=== PATIENT | female | born 1995 | race African-American/Black ===

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

== ENCOUNTER 2019-01-25 08:58 | Emergency (ER) | payer SELFPAY ==
[~2019-01-25] VITALS: Ht 157.5 cm; Wt 50.0 kg
[2019-01-25] MEDS ORDERED: ACETAMINOPHEN 325MG TABLET PO PRN (09:30)
[2019-01-25 09:54] LABS: CHLORIDE 105 mEq/L (98-107)
[2019-01-25 09:56] LABS: BASOPHILS % 0.6 % (0.0-2.0); EOSINOPHILS % 0.2 % (0.0-5.0); HEMATOCRIT. 34.3 % (36.0-48.0); HEMOGLOBIN. 11.5 g/dL (12.0-16.0); LYMPHOCYTES % 9.4 % (20.0-50.0); MEAN CORPUSCULAR HEMOGLOBIN 32.6 pg (28.0-32.0); MEAN CORPUSCULAR VOLUME 97.5 fL (81.0-99.0); MEAN PLATELET VOLUME 7.5 fl (7.4-10.4); MONOCYTES % 5.4 % (2.0-8.0); NEUTROPHILS % 84.4 % (40.0-76.0); PLATELET 229 x1000/uL (130-400); RED BLOOD CELL COUNT 3.52 mill/uL (4.2-5.4); RED CELL DISTRIBUTION WIDTH 13.6 % (11.6-14.6)
[2019-01-25 10:17] LABS: B-HCG QUANTITATIVE 1213 mIU/mL (<3)
[2019-01-25 12:08] VITALS: BP 116/70
== END 2019-01-25 12:10 | disposition home or self-care (01) ==
LOC: ER 09:09
DX: O20.0 Threatened abortion (principal); Z3A.09 9 weeks gestation of pregnancy
CPT/HCPCS: 36415; 76801; 84702; 86850; 86900; 99284

== ENCOUNTER 2020-09-23 12:39 | Emergency (ER) | payer SELFPAY ==
[~2020-09-23] VITALS: Ht 157.5 cm; Wt 52.0 kg
[2020-09-23 12:46] VITALS: BP 110/82
[2020-09-23] MEDS ORDERED: ACETAMINOPHEN 325MG TABLET PO ONE (14:45)
[2020-09-23] MEDS ORDERED: AMOX-494 MT (14:53)
[2020-09-23] MEDS ORDERED: ACET650T37 MT (14:53)
== END 2020-09-23 15:02 | disposition home or self-care (01) ==
LOC: ER 12:39
DX: K08.89 Other specified disorders of teeth and supporting structures (principal); K04.7 Periapical abscess without sinus; F12.10 Cannabis abuse, uncomplicated
CPT/HCPCS: 99283

== ENCOUNTER 2021-07-15 10:15 | Emergency (ER) | payer SELFPAY ==
[~2021-07-15] VITALS: Ht 157.5 cm; Wt 55.0 kg
[~2021-07-15 10:15] MED LIST: ACET650T37 MT; AMOX-494 MT
[2021-07-15 10:57] VITALS: BP 106/73
[2021-07-15] MEDS ORDERED: DICYCLOMINE 10 MG/5 ML ORAL SYR PO STA (11:14)
[2021-07-15] MEDS ORDERED: VISCOUS LIDOCAINE 2% 15 ML UDC PO STA (11:14)
[2021-07-15] MEDS ORDERED: MAGNESIUM/ALUMINUM HYDROXIDE/SIMETHICONE 30ML UDC PO STA (11:14)
[2021-07-15] MEDS ORDERED: XLV MT (12:16)
[2021-07-15] MEDS ORDERED: MAG-55 MT (12:16)
== END 2021-07-15 12:41 | disposition home or self-care (01) ==
LOC: ER 10:15
DX: O26.892 Other specified pregnancy related conditions, second trimester (principal); Z3A.23 23 weeks gestation of pregnancy; F12.10 Cannabis abuse, uncomplicated; Z98.890 Other specified postprocedural states
CPT/HCPCS: 76805; 99284

== ENCOUNTER 2021-07-30 09:09 | Emergency (ER) | payer MEDICAID ==
[~2021-07-30] VITALS: Ht 157.5 cm; Wt 59.0 kg
[~2021-07-30 09:09] MED LIST changes: +ACET-3163 MT; -ACET650T37 MT; +MAG-55 MT; +XLV MT
[2021-07-30] MEDS ORDERED: SODIUM CHLORIDE 0.9% 1,000 ML IV ONE (11:30)
[2021-07-30 11:39] LABS: BASOPHILS % 0.1 % (0.0-2.0); EOSINOPHILS % 0.1 % (0.0-5.0); HEMATOCRIT. 27.9 % (36.0-48.0); HEMOGLOBIN. 9.4 g/dL (12.0-16.0); LYMPHOCYTES % 10.7 % (20.0-50.0); MEAN CORPUSCULAR HEMOGLOBIN 31.7 pg (28.0-32.0); MEAN CORPUSCULAR VOLUME 94.1 fL (81.0-99.0); MEAN PLATELET VOLUME 8.2 fl (7.4-10.4); MONOCYTES % 7.9 % (2.0-8.0); NEUTROPHILS % 81.2 % (40.0-76.0); PLATELET 203 x1000/uL (130-400); RED BLOOD CELL COUNT 2.96 mill/uL (4.2-5.4); RED CELL DISTRIBUTION WIDTH 14.1 % (11.6-14.6)
[2021-07-30 11:44] LABS: CHLORIDE 106 mEq/L (98-107)
[2021-07-30 11:47] LABS: PROTHROMBIN TIME 10.8 sec (9.6-11.0)
[2021-07-30] MEDS ORDERED: ONDANSETRON HCL 4MG/2ML INJ IV STA (12:19)
[2021-07-30] MEDS ORDERED: MORPHINE SULFATE 4 MG/ML CPJ (NOT FOR IM USE) IV STA (12:19)
[2021-07-30] MEDS ORDERED: CEFTRIAXONE 1 G PREMIX 50 ML IV ONE (12:30)
[2021-07-30] MEDS ORDERED: TETRACAINE/BENZOCAINE/BUTAMBEN 20 GM SPRAY MM NR (12:30)
[2021-07-30] MEDS ORDERED: LIDOCAINE HCL/EPINEPHRINE 1%-EPI 1:100,000 20 ML VIAL INFIL ONE (12:30)
[2021-07-30] MEDS ORDERED: DEXAMETHASONE 10 MG/ML VIAL IV ONE (12:30)
[2021-07-30 12:50] LABS: HCG SCREEN POSITIVE
[2021-07-30] MEDS ORDERED: LIDOCAINE HCL/EPINEPHRINE 1%-EPI 1:100,000 20 ML VIAL INFIL NR (13:15)
[2021-07-30] MEDS ORDERED: MORPHINE SULFATE 4 MG/ML CPJ (NOT FOR IM USE) IV NR (13:15)
[2021-07-30] MEDS ORDERED: CEFTRIAXONE 1 G PREMIX 50 ML IV NR (13:15)
[2021-07-30] MEDS ORDERED: DEXAMETHASONE 10 MG/ML VIAL IV NR (13:15)
[2021-07-30] MEDS ORDERED: ONDANSETRON HCL 4MG/2ML INJ IV NR (13:15)
[2021-07-30] MEDS ORDERED: MORPHINE SULFATE 4 MG/ML CPJ (NOT FOR IM USE) IV ONE (15:15)
[2021-07-30 20:58] VITALS: BP 108/72
== END 2021-07-30 21:00 | disposition short-term general hospital (02) ==
LOC: ER 09:09
DX: O26.893 Other specified pregnancy related conditions, third trimester (principal); K12.2 Cellulitis and abscess of mouth; M54.2 Cervicalgia; R25.2 Cramp and spasm; O99.323 Drug use complicating pregnancy, third trimester; F12.90 Cannabis use, unspecified, uncomplicated; O99.013 Anemia complicating pregnancy, third trimester; Z3A.32 32 weeks gestation of pregnancy; Z20.822 Contact with and (suspected) exposure to COVID-19
CPT/HCPCS: 36415; 70491; 80053; 81025; 84702; 84703; 85025; 85610; 87426; 96365; 96366; 96375; 96376; 99285; C9803; J0696; J1100; J2270; J2405; J3490; J7030